=== PATIENT | female | born 1950 | race Caucasian/White ===

== ENCOUNTER 2022-01-01 11:59 | Outpatient (CLI) | payer MEDICARE, SELFPAY ==
--- NOTE | 2022-01-01 13:01 | ECG_ITS ---
Measurements Intervals [place] Rate: 67 P: 48 MA: 152 QRS: 26 QRSD: 146 T: -23 QT: 417 QTc: 441 Interpretive Statements SINUS RHYTHM RIGHT BUNDLE BRANCH BLOCK ABNORMAL ECG Electronically Signed On 01-01-2022 15:16:35 CDT by Eduardo Freire D.O.
[2022-01-01 13:13] LABS: Albumin Level 4.7 g/dL (3.5-5.1); Estimated Glomerular Filt Rate > 60; Glucose 107 mg/dL (65-110)
[2022-01-01 13:21] LABS: Hemoglobin A1C 5.6 % (<5.7)
== END 2022-01-01 12:00 | disposition home or self-care (01) ==
PROVIDERS: PCP Internal Medicine Geriatric Medicine; Visit Provider Orthopaedic Surgery
DX: Z01.818 Encounter for other preprocedural examination (principal); M17.11 Unilateral primary osteoarthritis, right knee; G54.0 Brachial plexus disorders; R73.03 Prediabetes; Z13.0 Encounter for screening for diseases of the blood and blood-forming organs and certain disorders involving the immune mechanism; I45.10 Unspecified right bundle-branch block
CPT/HCPCS: 36415; 82040; 82565; 82947; 83036; 93005

== ENCOUNTER 2022-01-03 15:45 | Emergency (ER) | payer MEDICARE, SELFPAY ==
[2022-01-03 16:00] VITALS: BP 138/84; PULSE 108; RESP 18; TEMP 37.1; O2SAT 100
--- NOTE | 2022-01-03 16:05 | ED.GENADULT ---
HPI - General Adult General Chief complaint: Extremity Problem,Nontraumatic Stated complaint: pinched nerve in neck and arm Time Seen by Provider: 01/03/22 16:05 Source: patient Mode of arrival: ambulatory Limitations: no limitations History of Present Illness HPI narrative: 71 yo F presents with c/o L sided neck pain radiating into L arm for 2 days. Started after waking up. thinks she slept wrong. Told by chiropractor that she has pinched nerve. Was given neck adjustment yesterday. chiropractor closed today. PCP was not able to see her. Taking ibuprofen without relief. ROM to L arm and neck intact. Denies numbness/tingling, weakness. Ambulatory with steady gait. All systems reviewed and negative except as noted above. Related Data Home Medications Medication Instructions Recorded Confirmed amlodipine 2.5 mg tablet (Norvasc) 2.5 mg PO DAILY 07/25/20 01/03/22 aspirin 81 mg tablet,delayed 81 mg PO DAILY 07/25/20 01/03/22 release (Adult Low Dose Aspirin) atorvastatin 10 mg tablet (Lipitor) 10 mg PO DAILY 07/25/20 01/03/22 Allergies Allergy/AdvReac Type Severity Reaction Status Date / Time codeine Allergy Intermediate NAUSEA/VOMITING/SEVERE Verified 01/03/22 15:59 HEADACHE oxycodone Allergy Unknown Unknown Verified 01/03/22 15:59 Review of Systems Review of Systems: CONSTITUTIONAL: Denies fever, chills, or sweats. EYES: Denies visual changes, redness, or discharge. ENT: Denies rhinorrhea, congestion, sore throat, or otalgia. CARDIOVASCULAR: Denies chest pain, palpitations, or edema. RESPIRATORY: Denies cough or dyspnea. GASTROINTESTINAL: Denies abdominal pain, nausea, vomiting, or diarrhea. GENITOURINARY: Denies dysuria or hematuria. SKIN: Denies rash or itching. MUSCULOSKELETAL: Denies back pain, joint pain, or myalgia. Reports L sided neck pain radiating into L arm NEUROLOGIC: Denies headache, numbness, or weakness. PSYCHIATRIC: Denies anxiety or depression. All other systems reviewed are negative, except as documented in HPI. [facility] Past Medical History Medical History Abdominal cyst (~2010) History of torn meniscus of knee Osteoarthritis of right knee Thoracic outlet syndrome (~1995) Surgical History Surgical History H/O arthroscopic knee surgery (~2007) H/O hernia repair Family History Family History Father Family history of congenital heart disease Social History Social History Smoking status: Never smoker Alcohol intake: never Comments At time of signature, agree with nursing past medical, surgical, social and family history. There is no relevant family history pertinent to the presenting complaint. Exam Narrative: GENERAL: This is a well-nourished, well-developed patient, in no apparent distress. HEAD: normocephalic, atraumatic. EYES: PERRL. Sclera clear/white. Vision is grossly intact. EARS: External ears normal NOSE: External nose normal NECK: Neck supple, without lymphadenopathy, masses or thyromegaly. tenderness to L trapezius. ROM intact. CARDIOVASCULAR: Regular rate and rhythm without murmurs, gallops, or rubs. RESPIRATORY: Clear to auscultation. Breath sounds equal bilaterally. No wheezes, rales, or rhonchi. SKIN: warm, Dry, intact with no suspicious lesions or rash, good texture and turgor. NEURO: awake, alert, and oriented to person, place and time. There were no obvious focal neurologic abnormalities. EXTREMITIES: No joint tenderness, effusion, or edema noted. ROM to L arm normal. Pain to L side neck with passive ROM to L arm. NV intact. Course Course Level of Care: Express Care Visit Vital Signs Vital signs: Vital Signs Temperature 37.1 C 01/03/22 16:00 Pulse Rate 108 H 01/03/22 16:00 Respiratory Rate 18 01/03/22 16:00 Blood Pressure
== END 2022-01-03 16:26 | disposition home or self-care (01) ==
PROVIDERS: Emergency Provider Nurse Practitioner Family; PCP Internal Medicine Geriatric Medicine
DX: S16.1XXA Strain of muscle, fascia and tendon at neck level, initial encounter (principal); X58.XXXA Exposure to other specified factors, initial encounter; M17.11 Unilateral primary osteoarthritis, right knee
CPT/HCPCS: 99213; A4565; G0463

== ENCOUNTER 2022-01-08 14:27 | Outpatient (CLI) | payer MEDICARE, SELFPAY ==
--- NOTE | ~2022-01-08 | CT_ITS ---
EXAMINATION: CT LE RT wo con DATE: 01/08/2022 15:10 INDICATION: Right knee osteoarthritis and pain for preoperative planning. TECHNIQUE: High resolution computed tomography (CT) of the right lower limb from the hip through the ankle was performed without intravenous contrast. Additional sagittal and coronal reconstructions wer e performed. Automated exposure control and iterative reconstruction technique were employed. The dos e-length product was 1567.89 mGy-cm. COMPARISON: Right knee radiographs dated 10/25/2021 FINDINGS: Bone alignment is normal. No fracture. Minimal osteoarthritis of the right hip. Small enthesopathic o ssification at the right greater trochanteric insertion of the gluteus minimus tendon. Mild osteoarth ritis at the right ankle with mild subarticular cystic changes posteriorly. Small enthesophytes along the anterior margin of the tip of the medial and lateral malleoli. Tricompartmental osteoarthritis a t the right knee with small marginal osteophytes in the medial and lateral compartments and moderate size marginal ossified to the medial compartment. There is at least moderate joint space narrowing th e medial compartment although this could be underestimated on nonweightbearing imaging. Subsequent ir regularity and multiple small subarticular cystlike changes along the weightbearing medial femoral co ndyle suggesting overlying high-grade chondromalacia. Several loose osteochondral bodies at the poste rior recess of the right knee. No hip, knee or ankle joint effusions. Localized fat at the medial susie e of the proximal medial head of the gastrocnemius and underlying soleus muscles which suggests possi ble atrophy related to prior muscle strain. Differential would include intramuscular lipomas. Diverti cula along the sigmoid colon without adjacent from 3 change to suggest diverticulitis. The uterus is not identified and has likely been surgically resected. No pathologically enlarged right pelvic or in guinal lymphadenopathy. IMPRESSION: 1. A compartment osteoarthritis at the right knee with medial sided predominance where it is of at le ast moderate severity, potentially underestimated on nonweightbearing imaging. Reviewed, dictated and finalized at location A. IMPRESSION: 1. A compartment osteoarthritis at the right knee with medial sided predominanc e where it is of at least moderate severity, potentially underestimated on nonw eightbearing imaging.
== END 2022-01-08 14:28 | disposition home or self-care (01) ==
LOC: ANHIMG 14:34
PROVIDERS: PCP Internal Medicine Geriatric Medicine; Visit Provider Orthopaedic Surgery
DX: M17.11 Unilateral primary osteoarthritis, right knee (principal); M23.41 Loose body in knee, right knee
CPT/HCPCS: 73700

== ENCOUNTER 2022-03-05 11:48 | Outpatient (CLI) | payer MEDICARE, SELFPAY ==
[2022-03-05 13:16] LABS: Basophils Percent Auto 0.4 % (0.2-1.2); Eosinophils Absolute Auto 0.1 K/mm3 (0-0.3); Eosinophils Percent Auto 1.1 % (0-4.4); Hematocrit 42.3 % (37.0-47.0); Hemoglobin 13.9 g/dL (12.0-15.0); Immature Granulocyte Absolute 0.04 K/mm3 (0.00-0.031); Immature Granulocyte Percent A 0.5 % (0-0.5); Lymphocytes Absolute Auto 1.21 K/mm3 (0.9-3.2); Lymphocytes Percent Auto 16.2 % (18.3-44.2); Mean Corpuscular HGB Conc 32.9 g/dl (32-36); Mean Corpuscular Hemoglobin 31.1 pg (26-34); Mean Corpuscular Volume 94.6 fl (80-100); Mean Platelet Volume 9.6 fl (7.4-10.4); Monocytes Absolute Auto 0.7 K/mm3 (0.1-0.6); Monocytes Percent Auto 9.1 % (2.6-8.5); Neutrophils Absolute Auto 5.4 K/mm3 (1.3-6.7); Neutrophils Percent Auto 72.7 % (45.5-73.1); Platelet Count Result 289 k/mm3 (150-375); Red Blood Count 4.47 M/mm3 (4.2-5.4); Red Cell Distribution Width 14.7 % (11.5-14.5); White Blood Count 7.5 K/mm3 (4.5-10.0)
[2022-03-05 13:30] LABS: Albumin Level 4.5 g/dL (3.5-5.1); Estimated Glomerular Filt Rate > 60; Glucose 114 mg/dL (65-110)
[2022-03-05 13:40] LABS: Urine Cotinine NEGATIVE
== END 2022-03-05 11:49 | disposition home or self-care (01) ==
LOC: ANHSURGERY 12:01
PROVIDERS: PCP Internal Medicine Geriatric Medicine; Visit Provider Orthopaedic Surgery
DX: Z01.812 Encounter for preprocedural laboratory examination (principal); M17.11 Unilateral primary osteoarthritis, right knee; Z51.81 Encounter for therapeutic drug level monitoring; Z79.899 Other long term (current) drug therapy
CPT/HCPCS: 80307; 82040; 82565; 82947; 85025; 87081

== ENCOUNTER 2022-03-27 01:24 | Day surgery (SDC) | payer MEDICARE, SELFPAY ==
--- NOTE | 2022-03-05 11:51 | PC.NURSE ---
PRE-OP INSTRUCTIONS, PLEASE READ CAREFULLY Report to the Outpatient Waiting Room, entrance under the green pavilion located off [facility], at time _0630_ on date _03/27/22_. OR Time: _0830_. PACK A SMALL OVERNIGHT BAG AND LEAVE IN THE CAR ALONG WITH YOUR WALKER. Time changes happen often and if your time is changed the preop area will call you the afternoon before. - You and your visitor will be asked to self-screen and do not enter if you have any COVID symptoms. - Only one visitor and NO children visitors are allowed at this time. - A mask must be worn within the hospital - The patient visitor is requested to leave or wait in car when not with patient due to restrictions. - VISITING HOURS 10AM-8PM, PARK IN FRONT PARKING LOT AND USE MAIN HOSPITAL ENTRANCE 1 Patients may have clear liquids (water, carbonated beverages, clear teas, apple juice) until 3 hours prior to surgery (0530 AM) with a maximum of 20 ounces. - No food from midnight until time of surgery Take the following medications with a SIP of water the morning of surgery: _AMLODIPINE_ Medications to discontinue per DR. BAIN -_ASPIRIN, IBUPROFEN 7 DAYS PRIOR TO SURGERY, Date to take last dose 03/19/22_ Please no make-up, nail french, hairspray, perfume, deodorant, or body powder the day of surgery. No jewelry (including any body piercings) or valuables the day of surgery, leave them at home. Please take a shower or bath the night before, or the morning of, surgery with an antibacterial soap. Wear comfortable, loose fitting clothing. - Jewelry must be removed prior to entering the operating room. Rings and piercings that are not removed may be cut off. - The hospital will not accept responsibility for valuables. - Please leave all valuables, including medications, at home the day of surgery. If you are going home after surgery, a licensed route sales driver must drive you home. - NO public transportation without another adult. - We recommend that an adult stay with you for 24 hours following discharge. - We also recommend that you do not drive, make important decision, drink alcoholic beverages, or take any drugs that were not prescribed by your health care provider for at least 24 hours after your discharge time. Follow any additional instructions given to you from your surgeon. If you or anyone in your household have experienced Covid symptoms in the past week, please notify your surgeon or the nurse liaison at the phone number below for possible testing. Instructions given to_PT_and asked if any additional questions and then verbalized understanding. Patient advised to call surgeon office or pre surgery nurse liaison [phone] if any additional questions.
[2022-03-05 12:23] VITALS: BP 150/80; PULSE 82; RESP 18; TEMP 36.8; O2SAT 97; BMI 26.7
--- NOTE | 2022-03-26 10:18 | WPDANESEPPF ---
Anes - Initial Pre Proc Eval Procedure: Operation Date: 03/27/22 08:30 Proposed Procedures p Right Custom Total Knee Arthroplasty - Favian Prado MD Date/Time: 03/26/22 10:18 Surgeon: Favian Prado MD Pre Op Diagnosis: primary oa right knee Patient Data Age: 71 Gender: F Height: 1.73 m Weight: 79.9 kg Last Vital Signs Temp 36.8 C 03/05/22 12:23 Pulse 82 03/05/22 12:23 Resp 18 03/05/22 12:23 BP 150/80 H 03/05/22 12:23 Pulse Ox 97 03/05/22 12:23 O2 Del Method Room Air 03/05/22 12:23 Allergies Allergy/AdvReac Type Severity Reaction Status Date / Time codeine Allergy Intermediate NAUSEA/VOMITING/SEVERE Verified 03/27/22 06:40 HEADACHE oxycodone Allergy Unknown Hallucinati Verified 03/27/22 06:40 ng aclidinium AdvReac WHEEZING, Verified 03/27/22 06:40 & SOB cephalexin AdvReac Rash Verified 03/27/22 06:40 morphine AdvReac Hallucinati Verified 03/27/22 06:40 ng sertraline AdvReac DUNLAP Verified 03/27/22 06:40 sulfamethoxazole AdvReac Rash Verified 03/27/22 06:40 trimethoprim AdvReac Rash Verified 03/27/22 06:40 Home Medications Medication Instructions Recorded Confirmed Type amlodipine 2.5 mg tablet (Norvasc) 2.5 mg PO DAILY 07/25/20 03/27/22 History aspirin 81 mg tablet,delayed 81 mg PO DAILY 07/25/20 03/27/22 History release (Adult Low Dose Aspirin) atorvastatin 10 mg tablet (Lipitor) 10 mg PO DAILY 07/25/20 03/27/22 History ibuprofen 600 mg tablet 600 mg PO Q6H PRN pain #30 tabs 01/03/22 03/27/22 Rx nitrofurantoin 1 cap PO BID 03/27/22 03/27/22 History monohydrate/macrocrystals 100 mg capsule Patient hx anesthesia problems: none Family hx anesthesia problems: none Results Review: All pre-operative results and documents have been reviewed as part of the pre-operative evaluation. [facility] Past Medical History Medical History (Updated 03/26/22 @ 10:19 by Nav Rodriges DO) Abdominal cyst (~2010) History of heart attack mild 2016 History of torn meniscus of knee Hyperlipidemia Hypertension Osteoarthritis of right knee PONV (postoperative nausea and vomiting) Thoracic outlet syndrome (~1995) Surgical History Surgical History (Updated 03/26/22 @ 10:19 by Nav Rodriges DO) H/O arthroscopic knee surgery (~2007) H/O hernia repair History of hysterectomy Family History Family History Father Family history of congenital heart disease Social History Social History Smoking status: Never smoker Second hand tobacco smoke exposure: No Additional smoking assessment comments: PT DENIES ALL FORMS OF TOBACCO USE Alcohol intake: never Substance use: never Substance use type: does not use Living arrangements: with family Spiritual care concerns: No Anes - Eval Final PreProcedure Day of Procedure 03/26/22 10:18 Patient weight: overweight Heart: regular rate and rhythm Lungs: clear to auscultation Airway: Mallampati scale class II Neurological: alert and oriented Last oral intake: >/= 8 hours ASA classification: III Emergent: no Anesthetic plan: proceed Anesthesia type and monitoring: general LMA and standard monitoring Results Review: All pre-operative results and documents have been reviewed as part of the pre-operative evaluation. Informed Consent: The patient's anesthetic plan and its attendant risks and benefits were discussed with the patient/family/POA. Questions were solicited and answers provided to the satisfaction of the patient/family/POA.
[2022-03-27] VITALS (19 sets, daily range): BP systolic 110–155; BP diastolic 58–89; PULSE 81–100; RESP 12–20; TEMP 36.2–37.2; O2SAT 93–100
--- NOTE | ~2022-03-27 | XR_ITS ---
EXAMINATION: XR knee RT 2V DATE: 03/27/2022 11:55 INDICATION: Postoperative evaluation following right total knee arthroplasty. TECHNIQUE: Anteroposterior and lateral views of the right knee were obtained. COMPARISON: None. FINDINGS: Right total knee arthroplasty with patellar resurfacing appears well seated and in near anatomic alig nment. No fractures identified. Expected postoperative subcutaneous and intra-articular gas. IMPRESSION: 1. Right total knee arthroplasty, negative for postoperative purposes. Reviewed, dictated and finalized at location A.
[2022-03-27] MEDS: ACETAMINOPHEN 500 MG TABLET 1000 MG PO (06:45)
[2022-03-27] MEDS: LACTATED RINGERS 1,000 ML 30 ML IV CONT ×2 (06:50→11:30)
[2022-03-27] MEDS: TRANEXAMIC ACID 1,000MG/ISO100 1,000 MG/100 ML BAG 200 MG IVPB (07:06)
--- NOTE | 2022-03-27 07:22 | WPDANESPNB ---
Anes - Peripheral Nerve Block Date/Time: 03/27/22 07:22 I have discussed with the patient/family/POA the placement of a peripheral nerve block for post-operative pain management, including associated risks, benefits, complications, and side effects. Alternative methods of post-operative analgesia were detailed. Questions were solicited and answers provided to the satisfaction of the patient/family/POA. Time-Out: A pre-procedural Time-Out was completed immediately before starting the procedure and confirmed: Patient Identification, Site, Procedure, Patient Position and the Availability of Requisite Equipment. Clinical Indications: Acute post-operative pain management requested by the operative surgeon. Nerve Block Insertion Note Anes-nerve block: adductor canal right Patient position: supine Skin prep: chlorhexidine Needle: 22 gauge, stimulating, insulated echogenic needle. Needle length: 80 mm Technique: ultrasound Injectate: bupivacaine 0.5% with epi 5 mcg/ml (30cc - no epi) Observations: tolerated well Complications: none Procedure start time:: 735 Procedure end time:: 738
--- NOTE | 2022-03-27 07:31 | SUR.PREOP ---
DR. BAIN AWARE OF PT TAKING ANTIBIOTICS FOR A UTI.
--- NOTE | 2022-03-27 07:39 | WPDHPUPDATE1 ---
History and Physical Update Update Date/Time: 03/27/22 07:39 History and Physical has been reviewed, including an updated exam of the patient. There are NO changes in the patient's condition. Risks, benefits, and alternatives have been discussed and questions answered. Patient agrees to proceed with procedure.
[2022-03-27] MEDS: fentaNYL CITRATE INJ (*CRX) 100 MCG/2 ML VIAL 25 MCG IV PUSH ×8 (11:55→13:08)
[2022-03-27] MEDS: ONDANSETRON INJ 4 MG/2 ML VIAL IV PUSH ×2 (12:12→14:38)
[2022-03-27] MEDS: SODIUM CHLORIDE 0.9% IV 1,000 ML 125 ML IV CONT (14:53)
--- NOTE | 2022-03-27 15:16 | ADMGEN ---
This patient, Radha Hernandez, was admitted to Medical Room 255-01. Patient/family oriented to hospital policies and general routines including ID bracelet, bed and alarms, visiting hours, pain management, procedures, bathroom and other care routines, personal items, smoking policy, room service/diet, and visiting hours. Information on how to activate the Rapid Response Team has been discussed. Patient/Family are encouraged to report perceived risks to care and to ask questions if they do not understand what they are told or what they should do.
--- NOTE | 2022-03-27 16:11 | W.PM.PROC2 ---
Procedure Note - Detailed Date of Procedure 03/27/22 Pre-op Diagnosis primary oa right knee Post-op Diagnosis Same Procedure Performed Total knee arthroplasty, right. Surgeon Favian Prado MD Rv Repair Technician Karolyn Díaz PA-C Anesthesia General and Regional (Subsartorial block.) Findings Custom TKA. Moderate synovitis. Good bone quality. Mild medial release. Description of Procedure Preoperative antibiotics were given. The limb was prepped and draped in the usual sterile fashion with a well-padded tourniquet high on the thigh. The limb was exsanguinated and the tourniquet inflated to 300 mmHg during exposure and cementation. A longitudinal incision was created just medial to the patella. A trivector approach to the knee was performed. Arthrotomy was taken down through the joint capsule. No significant releases were initially taken. The femur was exposed and the F1 jig was applied. The coring tool was used to remove the cartilage for the F2 jig to sit flush with the bone. The jig was pinned and the distal cut carefully taken. Caliper measurements confirmed appropriate bony resections according to the preoperative templated plan. The F4 cutting jig for the femur was applied, at the standard rotation. The AP and anterior chamfer cuts were taken. The F5 jig was applied and the posterior chamfer cuts were taken. The tibia was prepared using the T1 jig, after removing cartilage for the jig contact points. Proper alignment was checked with the alignment mauricio. The tibia was cut using the T1u guide. Gap balancing was performed. Gap measurements were taken and the knee was trialed. Excellent alignment and soft tissue balancing was confirmed. The posterior cruciate ligament was recessed along the proximal tibia. The patella was cut for resurfacing. Three lug holes were drilled. Meniscal remnants were removed. The trial components were assembled. Excellent range of motion and proper soft tissue balancing were confirmed throughout the full range of motion. Patellar tracking was excellent. The knee was copiously irrigated periodically throughout the procedure. The real implants were cemented into position. Excess cement was carefully removed. The wound was closed in layers with interrupted #1 Vicryl suture, 2-0 strata fix suture, 0 strata fix suture, 2-0 strata fix suture. Steri-Strips placed on the skin with the knee flexed. Sterile bulky dressing applied. The patient was brought to the recovery room in stable condition. There were no complications. Physician faculty i on call medical assistant, Karolyn Díaz PA-C, required for surgery; including patient positioning, draping, tissue retraction, maintaining instrument position, cement removal, wound closure, and dressing placement. Implants Conformis Custom total knee arthroplasty. Cemented. Cruciate retaining. 6B insert. 32 mm round patella. Estimated Blood Loss -200.0 Urine Output 400 Drains No Complications No immediate complications Condition Stable Disposition PACU [facility] Billing Surgery - Charge Forward: Surgery Billing
[2022-03-27] MEDS: SENNA/DOCUSATE SODIUM TABLET 2 TAB PO (17:22)
[2022-03-27] MEDS: ASPIRIN 81 MG ENTERIC TABLET PO (17:22)
[2022-03-27] MEDS: MELOXICAM 7.5 MG TABLET PO (17:23)
[2022-03-27] MEDS: NITROFURANTOIN MONOHYD MACROCR 100 MG CAP PO (17:23)
[2022-03-27] MEDS: ATORVASTATIN 10 MG TABLET PO (20:43)
[2022-03-27] MEDS: FAMOTIDINE 20 MG TABLET PO (20:43)
[2022-03-27] MEDS: diphenhydrAMINE HCl INJ 50 MG/ML VIAL 25 MG IV PUSH (20:48)
[2022-03-28 03:20] VITALS: BP 115/54; PULSE 68; RESP 18; TEMP 36.3; O2SAT 96
[2022-03-28 04:11] LABS: Basophils Percent Auto 0.2 % (0.2-1.2); Hematocrit 32.8 % (37.0-47.0); Immature Granulocyte Absolute 0.04 K/mm3 (0.00-0.031); Immature Granulocyte Percent A 0.4 % (0-0.5); Lymphocytes Absolute Auto 0.82 K/mm3 (0.9-3.2); Lymphocytes Percent Auto 7.5 % (18.3-44.2); Mean Corpuscular HGB Conc 33.5 g/dl (32-36); Mean Corpuscular Hemoglobin 31.3 pg (26-34); Mean Corpuscular Volume 93.4 fl (80-100); Monocytes Percent Auto 8.9 % (2.6-8.5); Platelet Count Result 233 k/mm3 (150-375); Red Blood Count 3.51 M/mm3 (4.2-5.4); Red Cell Distribution Width 14.3 % (11.5-14.5); White Blood Count 10.9 K/mm3 (4.5-10.0)
[2022-03-28 05:30] LABS: Anion Gap 7 mmol/L (8-16); Blood Urea Nitrogen 11 mg/dL (7-17); Calcium 8.6 mg/dL (8.4-10.2); Carbon Dioxide 22 mmol/L (22-30); Chloride 107 mmol/L (98-107); Estimated CRCL calculation 57 ml/min; Estimated Glomerular Filt Rate > 60; Glucose 116 mg/dL (65-110); Potassium 3.7 mmol/L (3.4-5.0); Sodium 136 mmol/L (137-145)
[2022-03-28 07:01] VITALS: BP 124/65; PULSE 79; RESP 18; TEMP 36.4; O2SAT 96
[2022-03-28] MEDS: NITROFURANTOIN MONOHYD MACROCR 100 MG CAP PO (08:15)
[2022-03-28] MEDS: predniSONE 5 MG TABLET PO (08:15)
[2022-03-28] MEDS: SENNA/DOCUSATE SODIUM TABLET 2 TAB PO (08:15)
[2022-03-28] MEDS: FAMOTIDINE 20 MG TABLET PO (08:15)
[2022-03-28] MEDS: ASPIRIN 81 MG ENTERIC TABLET PO (08:15)
[2022-03-28] MEDS: MELOXICAM 7.5 MG TABLET PO (08:15)
[2022-03-28] MEDS: amLODIPine BESYLATE 2.5 MG TABLET PO (08:15)
--- NOTE | 2022-03-28 08:15 | WPDANESPN ---
Anes - Prog Note Post-Op Date/Time: 03/28/22 08:15 Cardiovascular status: normal Respiratory status: normal Airway patency: baseline Mental status: baseline Post-Op hydration status: normal Vital Signs: Last Vital Signs Temp 36.4 C L 03/28/22 07:01 Pulse 79 03/28/22 07:01 Resp 18 03/28/22 07:01 BP 124/65 03/28/22 07:01 Pulse Ox 96 03/28/22 07:01 O2 Del Method Room Air 03/27/22 21:00 O2 Flow Rate 2 03/27/22 15:09 Pain Score (VAS): 08/15 I/O: Intake & Output 03/27/22 03/28/22 03/28/22 23:59 07:59 15:59 Intake Total 830 1600 Output Total 900 1400 Balance -70 200 Laboratory Tests 03/28/22 03:26 03/28/22 03:26 03/27/22 03/28/22 03/28/22 06:53 03:26 03:26 WBC 10.9 H RBC 3.51 L Hgb 11.0 L Hct 32.8 L MCV 93.4 MCH 31.3 MCHC 33.5 RDW 14.3 Plt Count 233 MPV 10.0 Immature Gran % (Auto) 0.4 Neut % (Auto) 83.0 H Lymph % (Auto) 7.[address] [place] % (Auto) 8.9 H Eos % (Auto) 0.0 Baso % (Auto) 0.2 Lymph # (Auto) 0.[address] [place] # (Auto) 1.0 H Eos # (Auto) 0.0 Baso # (Auto) 0.0 Abs Immat Gran (auto) 0.04 H Absolute Neuts (auto) 9.0 H Absolute Nucleated RBC 0.0 Nucleated RBC % 0.0 Sodium 136 L Potassium 3.7 Chloride 107 Carbon Dioxide 22 Anion Gap 7 L BUN 11 Creatinine 0.80 Estim Creat Clear Calc 57 Estimated GFR > 60 Glucose 116 H Calcium 8.6 Antibody Screen Negative Post-procedural complaints: nausea (yesterday in PACU, no reports of nausea this morning ) Patient Feedback: Patient satisfied with anesthetic care.
--- NOTE | 2022-03-28 08:16 | PM.DS ---
DS: Admitting Diagnosis Discharge Date 03/28/22 Admitting Diagnosis OA knee Right DS: Discharge Diagnosis Discharge Diagnosis (1) Status post total right knee replacement: Code(s): Z96.651 - Presence of right artificial knee joint Status: Acute Assessment and Plan: Postop day 1: Right total knee arthroplasty. Patient tolerated procedure well. No complications. Pain manageable with pain medication. No numbness or tingling. We had a lengthy discussion regarding postoperative wound care, limitations, expectations, and exercises. Patient shows good understanding. He has had initial physical therapy and is tolerating it well. DVT prophylaxis: 81 mg baby aspirin b.i.d. for 14 days. Pain medication: Tramadol. Meloxicam. Prednisone. Tylenol. Patient has followup appointment with Dr. Prado in 3 weeks. DS: Summary Hospital Course Reason for hospitalization: Total knee arthroplasty Hospital Course: Patient tolerated procedure well. Has had initial PT/OT. No complications. Pain well managed. Status at Discharge Functional status at discharge: uses cane/walker Overall status at discharge: patient is progressing back to baseline Time Spent with Patient Time attestation: Total time spent providing and/or coordinating discharge services: Exam Narrative: Normal weight female. Resting comfortably in bed. No acute distress. A&O x3. Wearing compression socks bilaterally. Dressing intact with small amount of bloody drainage. Moderate swelling. No ecchymosis. No erythema. No hematoma. Good early range of motion. Calf nontender. Neurologic status intact. No varicosities. Distal pulses palpable. DS: Data Data Completed and Pending Labs on day of discharge: Labs from last 24 hours 03/28/22 03/28/22 03/27/22 03:26 03:26 06:53 WBC 10.9 H RBC 3.51 L Hgb 11.0 L Hct 32.8 L MCV 93.4 MCH 31.3 MCHC 33.5 RDW 14.3 Plt Count 233 MPV 10.0 Immature Gran % (Auto) 0.4 Neut % (Auto) 83.0 H Lymph % (Auto) 7.5 L [place] % (Auto) 8.9 H Eos % (Auto) 0.0 Baso % (Auto) 0.2 Lymph # (Auto) 0.82 L [place] # (Auto) 1.0 H Eos # (Auto) 0.0 Baso # (Auto) 0.0 Abs Immat Gran (auto) 0.04 H Absolute Neuts (auto) 9.0 H Absolute Nucleated RBC 0.0 Nucleated RBC % 0.0 Sodium 136 L Potassium 3.7 Chloride 107 Carbon Dioxide 22 Anion Gap 7 L BUN 11 Creatinine 0.80 Estim Creat Clear Calc 57 Estimated GFR > 60 Glucose 116 H Calcium 8.6 Antibody Screen Negative Discharge Plan Discharge Patient Disposition: Home, Self-Care Discharge Instructions: See green instructions sheets Stand Alone Forms: General Discharge Instructions Follow-up/Referrals: Karolyn Díaz PA [Physician Analytical Tech] - Discharge Medications: New aspirin 81 mg tablet,delayed release (DR/EC) 81 mg PO BID 14 Days Qty: 28 0RF tramadol 50 mg tablet 50 mg PO Q6H PRN (Reason: pain) Qty: 30 0RF Continued ibuprofen 600 mg tablet 600 mg PO Q6H PRN (Reason: pain) Qty: 30 0RF amlodipine [Norvasc] 2.5 mg tablet 2.5 mg PO DAILY Label Comments: ZUHAIR atorvastatin [Lipitor] 10 mg tablet 10 mg PO DAILY Label Comments: HS nitrofurantoin monohyd/m-cryst 100 mg capsule 1 cap PO BID Rx Instructions: Stop date 03/29/22 Held aspirin [Adult Low Dose Aspirin] 81 mg tablet,delayed release (DR/EC) 81 mg PO DAILY Hold Instructions: Resume on 04/10/22. Take twice a day for 2 weeks then resume normal one a day dose Label Comments: ZUHAIR
[2022-03-28] MEDS: traMADol HCL (*CRX) 50 MG TABLET PO (08:21)
[2022-03-28] MEDS: polyethylene glycoL 3350 17 GM POWD.PACK PO (08:22)
[2022-03-28 08:44] VITALS: BP 107/57; PULSE 62; RESP 16; O2SAT 100
[2022-03-28 09:00] VITALS: BP 106/72; PULSE 83; RESP 18; TEMP 36.7; O2SAT 100
== END 2022-03-28 11:15 | disposition home or self-care (01) ==
LOC: ANHSURGERY 10:41 → ANH2MED 13:51
PROVIDERS: Physician Assistant Surgical; PCP Internal Medicine Geriatric Medicine; Visit Provider Orthopaedic Surgery
PROC: (CPT 27447; principal; 2022-03-27 08:30)
DX: M17.11 Unilateral primary osteoarthritis, right knee (principal); G89.18 Other acute postprocedural pain; I10 Essential (primary) hypertension; E78.5 Hyperlipidemia, unspecified; I25.2 Old myocardial infarction; Z79.82 Long term (current) use of aspirin
CPT/HCPCS: 27447; 64447; 36415; 73560; 80048; 85025; 86850; 86900; 86901; 97110; 97116; 97161; 97165; 97530; 97535; A9270; C1713; C1776; J0131; J0171; J1100; J1200; J1885; J2250; J2405; J2704; J2795; J3010; J3370; J7030; J7120; J7512